=== PATIENT | male | born 1990 | race Caucasian/White ===

== ENCOUNTER 2017-10-30 12:09 | Emergency (ER) | payer OTHER ==
[2017-10-30 12:13] VITALS: RESP 16; TEMP 97.5
--- NOTE | 2017-10-30 13:43 | EDPHY ---
H & P Smoking Status: Never smoked Time Seen by Provider: 10/30/17 13:03 HPI/ROS: CHIEF COMPLAINT: Left great toenail injury HISTORY OF PRESENT ILLNESS: 27-year-old male with out-of-date tetanus was at work when he sustained an avulsion of his left great toenail. He is able to bear weight albeit with pain. Initially bleeding, now hemostatic. Occurred shortly prior to arrival. PRIMARY CARE PROVIDER: Worker's compensation REVIEW OF SYSTEMS: A ten point review of systems was performed and is negative with the exception of the items mentioned in the HPI PHYSICAL EXAM (Prior to examination, patient consented to physical exam, hands were washed and my usual and customary physical exam procedures followed) 1) GENERAL: Well-developed, well-nourished, alert and oriented. Appears to be in no acute distress. 2) HEAD: Normocephalic 3) HEENT: sclera anicteric 4) LUNGS: Breathing comfortably. 5) SKIN: No laceration 6) MUSCULOSKELETAL: Left great toe: Ingrown toenail to the medial aspect noted , partial nail avulsion, subacute blood in the subungual space. No underlying osseous discomfort. No laceration. 7) NEUROLOGIC: Full sensation (Sonali,D Pamella) Constitutional: Initial Vital Signs Temperature (C) 36.4 C 10/30/17 12:10 Heart Rate 65 10/30/17 12:10 Respiratory Rate 16 10/30/17 12:10 Blood Pressure 143/106 H 10/30/17 12:10 O2 Sat (%) 98 10/30/17 12:10 O2 Delivery Mode Room Air Allergies/Adverse Reactions: No Known Allergies Allergy (Unverified 10/30/17 12:10) Home Medications: Medication Instructions Recorded NK [No Known Home Meds] 10/30/17 MDM/Departure - MDM Procedures: Procedure: Evaluation for possible nail bed laceration Indications: Partial nail avulsion Indications risks benefits discussed with patient he consented. 1% plain lidocaine digital nerve block administered by myself and allowed to take effect. Patient had no immediate adverse effect. There is prepped draped normal sterile fashion. The remainder of the nail was further removed and I visualize no nail bed laceration. The medial portion of the nail consistent with ingrown toenail has been partially removed. He was placed in a sterile dressing and postop shoe by ER staff. (Seng Lyon) ED Course/Re-evaluation: PHYSICIAN DOCUMENTATION: The patient was evaluated and managed by the Physician Wheel Presser. My co- signature indicates that I have reviewed this chart and I agree with the findings and plan of care as documented. I am the secondary supervising physician. (Isaias Shah) - Depart Disposition: Home, Routine, Self-Care Clinical Impression: Ingrown toenail Nail avulsion, toe Qualifiers: Encounter type: initial encounter Qualified Code(s): S91.209A - Unspecified open wound of unspecified toe(s) with damage to nail, initial encounter Condition: Good Instructions: Ingrown Nail (ED), Nail Avulsion (ED) Additional Instructions: Return to the ER if you develop redness, swelling, discharge, warmth to the wound, red streaks going up your leg, or any other symptoms that concern you. Stand Alone Forms: Work Comp Follow Up Referrals: Follow-up, with your work comp provider in 2-3 days [Other] - As per Instructions
[2017-10-30 14:18] VITALS: BP 134/83; PULSE 75; O2SAT 95
== END 2017-10-30 14:18 | disposition home or self-care (01) ==
PROC: 0HDRXZZ Extraction of Toe Nail, External Approach (ICD-10-PCS; principal; 2017-10-30)
DX: S91.202A Unspecified open wound of left great toe with damage to nail, initial encounter (principal); L60.0 Ingrowing nail; X58.XXXA Exposure to other specified factors, initial encounter; Y92.69 Other specified industrial and construction area as the place of occurrence of the external cause; Y99.0 Civilian activity done for income or pay
CPT/HCPCS: L4386